=== PATIENT | male | born 1955 | race African-American/Black ===

== ENCOUNTER → 2017-02-21 | Outpatient (CLI) | payer OTHER ==
[~2017-02-21] MED LIST: ALBUTEROL2.5 MG/0.1 INH; ALBUTEROL2.5 MG/0.1 PO; ALBUTEROL2.5 MG/31 INH; CLARITIN10 MG PO; DALIRESP500 MCG PO; DIFLUCAN150 MG PO; DILTIAZEM 24HR240 M2 PO; DOXYCYCLINE 10100 M1 PO; FLONASE 0.05%50 MCG NASAL; FUROSEMIDE 20 M20 M1 PO; LEVAQUIN 500 M500 M2 PO; LOPRESSOR50 PO; MUCINEX600 MG PO; OMEPRAZOLE 20 M20 M1 PO; POTASSIUM PO; PREDNISONE 10 M10 MG PO; PREDNISONE 20 M20 M1 PO; PREDNISONE 20 M20 MG PO; PROAIR HFA8.5 GM INH; SPIRIVA INH; SYMBICORT160 MCG/4. INH; THEO-24100 MG; THEOPHYLLINE600 MG PO; TUSSIONEX PENN473 ML PO
== END ==
LOC: CAT 15:20
DX: Z13.6 Encounter for screening for cardiovascular disorders (principal)

== ENCOUNTER 2017-05-03 15:44 | Inpatient (IN) | payer OTHER ==
[~2017-05-03] VITALS: Ht 167.6 cm; Wt 64.2 kg
--- NOTE | ~2017-05-03 | 2DMMODE ---
[facility] [address] [place] [address] 2 D/M-MODE ECHOCARDIOGRAM Name: HARSHAL ALFONSO MYLES Room #: 455-P ADM IN M.R.#: [id number] Admission: 05/03/17 Attend Phys: Jae Stanley, Discharge: Date of : 51 Date of Service: 05/04/17 1417 Report #: [id number] THIS REPORT FOR: //name// APPROVED REPORT Study performed: 05/04/2017 13:23:52 EXAM: Comprehensive 2D, Doppler, and color-flow Echocardiogram Patient Location: Echo lab Room #: [facility] Other Information Study Quality: Adequate/low parasternal window. Indications Severe CLARKE. Hx: COPD, HTN 2D Dimensions RVDd: 34.31 mm LVEF(%): 61.38 (>50%) IVSd: 9.76 (7-11mm) LVOT Diam: 21.61 (18-24mm) LVDd: 42.08 mm PWd: 9.42 (7-11mm) LVDs: 28.35 (25-40mm) Aortic Root: 34.47 mm Crow's LVEF: 61.38 % Volumes Left Atrial Volume (Systole) Single Plane 4CH: 22.86 mL Single Plane 2CH: 28.43 mL LA ESV Index: 17.00 mL/m2 Mitral Valve E/A Ratio: 0.7 MV Decel. Time: 210.33 ms MV E Max Tree.: 0.80 m/s MV A Tree.: 1.10 m/s MV PHT: 60.99 ms IVRT: 64.59 ms Pulmonary Valve PV Peak Tree.: 1.18 m/s PV Peak Gr.: 5.57 mmHg Pulmonary Vein P Vein S: 0.86 m/s [facility] [place] [place] [address] 2 D/M-MODE ECHOCARDIOGRAM Name: HARSHAL ALFONSO CLOUDCROFT Room #: 455-[facility] IN ..#: [id number] Admission: 05/03/17 Attend Phys: Jae Stanley, Discharge: Date of : 51 Date of Service: 05/04/17 1417 Report #: [id number] P Vein D: 0.65 m/s P Vein S/D Ratio: 1.32 Tricuspid Valve RAP Estimate: 5.00 mmHg Left Ventricle The left ventricle is normal size. There is normal LV segmental wall motion. There is normal left ventricular wall thickness. Left ventricular systolic function is normal. LVEF is 60%. Mild diastolic dysfunction is present (impaired relaxation pattern). Right Ventricle The right ventricle is normal size. The right ventricular systolic function is normal. Atria The left atrium size is normal. The right atrium size is normal. Aortic Valve The aortic valve is normal in structure. No aortic regurgitation is present. There is no aortic valvular stenosis. Mitral Valve The mitral valve is normal in structure. There is no mitral valve regurgitation noted. No evidence of mitral valve stenosis. Tricuspid Valve The tricuspid valve is normal in structure. There is no tricuspid valve regurgitation noted. Pulmonic Valve The pulmonary valve is normal in structure. Trace pulmonic regurgitation. Great Vessels The aortic root is normal in size. Ascending aorta is not well visualized. IVC is normal in size and collapses >50% with inspiration. Pericardium There is no pericardial effusion. <Conclusion> The left ventricle is normal size. [facility] [place] [address] 2 D/M-MODE ECHOCARDIOGRAM Name: HARSHAL ALFONSO Room #: 455-P ADM IN M.R.#: [id number] Admission: 05/03/17 Attend Phys: Jae Stanley, Discharge: Date of : 51 Date of Service: 05/04/171416 Report #: [id number] LVEF is 60%. The aortic valve is normal in structure. The mitral valve is normal in structure. The tricuspid valve is normal in structure. The pulmonary valve is normal in structure. Ascending aorta is not well visualized. IVC is normal in size and collapses >50% with inspiration. <ELECTRONICALLY SIGNED> By: Wyatt Benson MD 05/04/17 1417 16 1417 Wyatt Benson MD /INF
--- NOTE | ~2017-05-03 | H ---
[facility] [place] [address] HISTORY AND PHYSICAL Name: HARSHAL ALFONSO Room #: 455-P ADM IN M.R.#: [id number] Admission: 05/03/17 Attend Phys: Jae Stanley MD Discharge: Date of : 51 Report #: [id number] THIS REPORT FOR: //name// CC: Rao Stanley DICTATED BY: Destiny KAUR ATTENDING PHYSICIAN: Annemarie Lucero M.D. PRIMARY CARE PHYSICIAN: Rao Saba M.D. CHIEF COMPLAINT: Shortness of air. HISTORY OF PRESENT ILLNESS: The patient is a 62-year-old -Spanish male with a history of COPD. He follows with Dr. Lopez with pulmonary outpatient. He normally wears 2 liters of oxygen throughout the night and also on and off throughout the day p.r.n. He says for the last 2 weeks, he has been feeling congested. He has had a cough that is mostly non-productive. He has been having some clear nasal drainage. Overall, he has not been feeling well and has been having some body aches with chills. He has never had a fever, but has been having some sweats, mainly at night. He is having increasing dyspnea on exertion. He used to be able to work out at the gym and walk on a treadmill 3 times a week. He has been unable to do that in the last few weeks because of his dyspnea. Family decided to come in to the ER to be evaluated. His oxygen saturation was 89% on room air. He was using his nebulizers at home as well as Spiriva and Symbicort without much improvement. He does have orthopnea, but this sounds like it is chronic. As far as his can remember, he has always slept on 2-3 pillows at night. He denies any history of congestive heart failure. In the ER, he also received some breathing treatments and was feeling somewhat better. He has been admitted for further evaluation. He also reports some weight loss of about 8 pounds in the last few months, which has been unintentional. PAST MEDICAL HISTORY: COPD. PAST SURGICAL HISTORY: Hernia repair. ALLERGIES: None. HOME MEDICATIONS: Xyzal one tab at bedtime, Spiriva one puff daily, albuterol nebulizer t.i.d., albuterol inhaler p.r.n., Lipitor 40 mg daily, metoprolol 50 mg b.i.d., aspirin 81 mg daily, Lasix 40 mg b.i.d., Symbicort 2 puffs b.i.d., guaifenesin 600 mg daily, Flonase 2 sprays daily and Prilosec 40 mg daily. SOCIAL HISTORY: The patient denies any alcohol or drug use. He is an ex-smoker, having quit 13 years ago. He [place] [address] HISTORY AND PHYSICAL Name: HARSHAL ALFONSO Room #: 455-P [facility] IN M.R.#: [id number] Admission: 05/03/17 Attend Phys: Jae Stanley MD Discharge: Date of : 51 Report #: [id number] normally is very active and works out on a treadmill and lifts weights 3 times a week. FAMILY HISTORY: Significant for heart disease, COPD and hypertension. REVIEW OF SYSTEMS: Twelve-point review of systems was reviewed with the patient, otherwise negative unless stated in the HPI. PHYSICAL EXAMINATION: GENERAL: The patient is an alert male in no acute distress. VITAL SIGNS: Temperature is 37.1, heart rate 102, respirations 20, blood pressure is 129/79 and oxygen 94% on room air. HEENT: PERRLA. Sclerae are nonicteric. Oral mucosa is pink and moist. NECK: Supple. No JVD noted. CARDIAC: Normal S1, S2. No murmurs, rubs or gallops. RESPIRATORY: Breath sounds are clear, bilateral upper lobes. He is diminished in both bases and does have some fine crackles in the left lower lobe. Breathing is nonlabored. ABDOMEN: Flat, nontender and nondistended with hypoactive bowel sounds. VASCULAR: Trace bilateral ankle edema. Pedal pulses are 2+. NEUROLOGIC: The patient is alert and oriented times 3. Speech is clear. He is answering questions appropriately and following commands. No focal neuro deficits noted. LABS AND DIAGNOSTICS: WBC is 6.8, hemoglobin 13.9 and platelets 167,000. Sodium 137, potassium 4.1, BUN 13, creatinine 1.0 and glucose 85. LFTs within normal limits. Troponins negative. ABG showed a pH of 7.43, pCO2 of 52.2 and pO2 of 52.2 with bicarbonate of 34.2, lactate 1.24 and chest x-ray was negative. EKG shows sinus rhythm. ASSESSMENT AND PLAN: 1. Ypndc-yf-slneoxf hypoxic respiratory failure due to chronic obstructive pulmonary disease. His case was discussed with pulmonary from the ER, who wanted the patient to be admitted. We will continue with breathing treatments and steroids. We will check a D-dimer and if that is elevated, check a CT angio of the chest. Consult pulmonary. Wean oxygen as able. We will also check an echocardiogram, though he does not show any signs of acute fluid overload and his BNP is normal. 2. Deep venous thrombosis prophylaxis, place sequential compression devices. [facility] [address] [place] [address] HISTORY AND PHYSICAL Name: KADENHARSHAL Room #: 455-P ADM IN M.R.#: [id number] Admission: 05/03/17 Attend Phys: Jae Stanley MD Discharge: Date of : 51 Report #: [id number] We will continue to follow the patient closely throughout the hospitalization and make changes based on clinical status. <ELECTRONICALLY SIGNED> By: Annemarie Lucero MD 05/04/17 1317 0706 1243 Annemarie Lucero MD /nt
--- NOTE | ~2017-05-03 | EKG ---
[address] [place] [place] [address] ELECTROCARDIOGRAM REPORT Name: HARSHAL ALFONSO MYLES Room #: 455-P ADM IN M.R.#: [id number] Admission: 05/03/17 Attend Phys: Annemarie Lucero Discharge: Date of : 51 Report #: [id number] THIS REPORT FOR: //name// [facility] ED Test Date: 2017-05-03 Test Time: 17:51:44 Pat Name: HARSHAL ALFONSO Department: Room: [facility] Gender: M Podiatric Aide: TANK : 1955 Requested By: Nohemi Zapata Order Number: [id number] MD: Davidson Barakat Measurements Intervals [place] Rate: 99 P: -27 [place]: 134 QRS: -25 QRSD: 70 T: -7 QT: 331 QTc: 425 Interpretive Statements Sinus rhythm Borderline left axis deviation Borderline T abnormalities, inferior leads Compared to ECG 05/16/2014 13:16:52 T-wave abnormality now present Electronically Signed On 05-03-2017 22:06:46 CDT by Davidson Barakat [email or web address] <ELECTRONICALLY SIGNED> By: Davidson Barakat MD 05/03/17 2206 175 175 Davidson Barakat MD /[facility]
[2017-05-03 15:48] VITALS: BP 129/79
[2017-05-03 17:58] LABS: ABG SAMPLE TYPE ARTERIAL; BE(vivo) 8.3 mmol/L (-2 to +3); HCO3 34.2 mmol/L (22.0-26.0); LACTATE 1.24 mmol/L (0.5-2.0); O2(CT) 17.4 mL/dL (15.0-23.0); O2Hb 87.2 % (92.0-98.0); PCO2 52.5 mmHg (35.0-45.0); PO2 52.5 mmHg (80.0-100.0); STICK SITE R.RADIAL; pH 7.432 (7.360-7.450); sO2 87.5 % (92.0-98.0); tCO2 35.8 mmol/L (24.0-30.0)
[2017-05-03 18:49] LABS: RDW 13.6 % (10.5-14.5)
[2017-05-03 18:51] LABS: HEMATOCRIT 41.4 % (42.0-52.0); HEMOGLOBIN 13.9 gm/dL (14.0-18.0); MCH 29.7 pg (26.0-34.0); MCHC 33.6 g/dL (28.0-37.0); MCV 88.4 fL (80.0-100.0); PLATELET COUNT 167 thou/uL (150-400); RBC 4.68 mil/uL (4.50-6.00); WBC 6.8 thou/uL (4.0-11.0)
[2017-05-03 18:52] LABS: MANUAL DIFF YES
[2017-05-03 18:58] LABS: ANION GAP 4 mmol/L (7-16); BUN 13 mg/dL (7-18); CALCIUM 9.2 mg/dL (8.5-10.1); CHLORIDE 99 mmol/L (98-107); CO2 34 mmol/L (21-32); GLUCOSE 85 mg/dL (74-106); POTASSIUM 4.1 mmol/L (3.5-5.1); SODIUM 137 mmol/L (136-145)
[2017-05-03 19:10] LABS: ALBUMIN 3.5 g/dL (3.4-5.0); ALKALINE PHOSPHATASE 101 U/L (46-116); NT-PRO BRAIN NAT PEPTIDE 11 pg/mL (<300); SGOT 26 U/L (15-37); SGPT 28 U/L (30-65); TOTAL BILIRUBIN 0.6 mg/dL (<0.1-1.0); TOTAL PROTEIN 7.7 g/dL (6.4-8.2); TROPONIN-I < 0.04 ng/mL (<0.04-0.07)
[2017-05-03 19:36] LABS: ABSOLUTE NEUTROPHILS 3.9 thou/uL (1.4-8.2); ANISOCYTOSIS 1+; TOTAL CELL COUNT 100
[2017-05-03 20:16] VITALS: BP 120/73
[2017-05-03 20:59] VITALS: BP 139/73
[2017-05-03] MEDS ORDERED: ASPIR 8181 M1 PO (21:20)
[2017-05-03] MEDS ORDERED: XYZAL5 MG PO (21:20)
[2017-05-03] MEDS ORDERED: ATORVASTATIN CA40 MG PO (22:39)
[2017-05-03 23:34] VITALS: BP 129/75
[2017-05-04 04:02] VITALS: BP 151/84
[2017-05-04 07:21] VITALS: BP 129/74
[2017-05-04 07:30] VITALS: BP 127/73
[2017-05-04 11:29] VITALS: BP 120/75
[2017-05-04 15:39] VITALS: BP 132/77
[2017-05-04 19:26] VITALS: BP 134/62
[2017-05-05 04:19] VITALS: BP 126/68
[2017-05-05 09:56] VITALS: BP 120/65
[2017-05-05 12:41] VITALS: BP 121/48
[2017-05-05 19:37] VITALS: BP 128/68
[2017-05-06 04:56] VITALS: BP 115/69
[2017-05-06 07:25] VITALS: BP 117/74
[2017-05-06 10:37] LABS: HEMATOCRIT 39.7 % (42.0-52.0); HEMOGLOBIN 12.8 gm/dL (14.0-18.0); MCH 28.9 pg (26.0-34.0); MCHC 32.2 g/dL (28.0-37.0); MCV 89.9 fL (80.0-100.0); RBC 4.41 mil/uL (4.50-6.00); RDW 13.9 % (10.5-14.5); WBC 15.3 thou/uL (4.0-11.0)
[2017-05-06 10:45] LABS: CALCIUM 9.6 mg/dL (8.5-10.1); CREATININE 1.1 mg/dL (0.7-1.3)
[2017-05-06 11:05] VITALS: BP 122/76
[2017-05-06 15:18] VITALS: BP 120/71
[2017-05-06 20:10] VITALS: BP 140/82
[2017-05-07 04:02] VITALS: BP 111/75
[2017-05-07 07:25] VITALS: BP 113/66
[2017-05-07] MEDS ORDERED: PREDNISONE 20 M20 M1 PO (10:02)
[2017-05-07] MEDS ORDERED: CETIRIZINE HCL5 MG PO (10:02)
[2017-05-07 10:20] VITALS: BP 113/66
[2017-05-07 14:11] VITALS: BP 113/66
== END 2017-05-07 13:00 | disposition home or self-care (01) | DRG 189 ==
LOC: ER 15:44 → 4W 18:41 → EROBS 18:41 → 4W 20:17
PROVIDERS: Internal Medicine; Nurse Practitioner Family
DX: J96.21 Acute and chronic respiratory failure with hypoxia (principal); E43 Unspecified severe protein-calorie malnutrition; J44.1 Chronic obstructive pulmonary disease with (acute) exacerbation; J96.22 Acute and chronic respiratory failure with hypercapnia; I10 Essential (primary) hypertension; E78.5 Hyperlipidemia, unspecified; Z87.891 Personal history of nicotine dependence; Z83.6 Family history of other diseases of the respiratory system; Z79.82 Long term (current) use of aspirin; Z82.49 Family history of ischemic heart disease and other diseases of the circulatory system; Z79.899 Other long term (current) drug therapy; Z68.22 Body mass index [BMI] 22.0-22.9, adult
CPT/HCPCS: 10045

== ENCOUNTER 2017-05-29 16:23 | Inpatient (IN) | payer OTHER ==
[~2017-05-29] VITALS: Ht 172.7 cm; Wt 61.2 kg
--- NOTE | ~2017-05-29 | EKG ---
[address] [place] [address] ELECTROCARDIOGRAM REPORT Name: HARSHAL ALFONSO Room #: 539-P ADM IN M.R.#: [id number] Admission: 05/29/17 Attend Phys: Ryan Rivera MD Discharge: Date of : 51 Report #: [id number] THIS REPORT FOR: //name// [facility] ED Test Date: 2017-05-29 Test Time: 16:47:33 Pat Name: HARSHAL ALFONSO Department: Room: 539 Gender: M Engine Monitor: EMILY : 1955 Requested By: Chuy Cabral Order Number: [id number] MD: Malik Iyer Measurements Intervals [place] Rate: 99 P: 85 [place]: 117 QRS: 83 QRSD: 82 T: 47 QT: 329 QTc: 423 Interpretive Statements Sinus rhythm Borderline right axis deviation Compared to ECG 05/03/2017 17:51:44 No significant change was found Electronically Signed On 05-30-2017 9:25:40 CDT by Malik Iyer [email or web address] <ELECTRONICALLY SIGNED> By: Malik Iyer MD, [facility] 05/30/1725 46 Malik Iyer MD, [facility] /EPI
[2017-05-29 16:23] VITALS: BP 144/73
[~2017-05-29 16:23] MED LIST changes: +ASPIR 8181 M1 PO; +ATORVASTATIN CA40 MG PO; +CETIRIZINE HCL5 MG PO; +XYZAL5 MG PO
[2017-05-29 17:08] LABS: HEMATOCRIT 40.8 % (42.0-52.0); HEMOGLOBIN 13.5 gm/dL (14.0-18.0); MCH 29.1 pg (26.0-34.0); MCHC 33.1 g/dL (28.0-37.0); PLATELET COUNT 146 thou/uL (150-400); RBC 4.63 mil/uL (4.50-6.00); RDW 14.6 % (10.5-14.5); WBC 9.6 thou/uL (4.0-11.0)
[2017-05-29 17:09] LABS: MANUAL DIFF YES
[2017-05-29 17:11] LABS: ABG SAMPLE TYPE ARTERIAL; BE(vivo) 4.5 mmol/L (-2 to +3); HCO3 31.3 mmol/L (22.0-26.0); LACTATE 4.16 mmol/L (0.5-2.0); O2(CT) 18.7 mL/dL (15.0-23.0); O2Hb 95.9 % (92.0-98.0); PCO2 55.7 mmHg (35.0-45.0); PO2 98.8 mmHg (80.0-100.0); STICK SITE R.RADIAL; pH 7.367 (7.360-7.450); sO2 97.2 % (92.0-98.0)
[2017-05-29 17:21] LABS: ANION GAP 7 mmol/L (7-16); BUN 17 mg/dL (7-18); CALCIUM 9.2 mg/dL (8.5-10.1); CHLORIDE 99 mmol/L (98-107); CO2 32 mmol/L (21-32); CREATININE 1.2 mg/dL (0.7-1.3); GLUCOSE 317 mg/dL (74-106); SODIUM 138 mmol/L (136-145)
[2017-05-29 17:32] LABS: ALBUMIN 3.3 g/dL (3.4-5.0); ALKALINE PHOSPHATASE 88 U/L (46-116); DIRECT BILIRUBIN 0.1 mg/dL (<0.1-0.3); NT-PRO BRAIN NAT PEPTIDE 32 pg/mL (<300); SGOT 13 U/L (15-37); SGPT 34 U/L (30-65); TOTAL BILIRUBIN 0.4 mg/dL (<0.1-1.0); TOTAL PROTEIN 6.9 g/dL (6.4-8.2); TROPONIN-I < 0.04 ng/mL (<0.04-0.07)
[2017-05-29 17:34] LABS: ABSOLUTE NEUTROPHILS 8.4 thou/uL (1.4-8.2); TOTAL CELL COUNT 100
[2017-05-29 19:36] VITALS: BP 127/79
[2017-05-30 00:36] VITALS: BP 156/72
[2017-05-30 04:19] VITALS: BP 109/64
[2017-05-30 05:53] LABS: HEMATOCRIT 39.6 % (42.0-52.0); HEMOGLOBIN 13.2 gm/dL (14.0-18.0); MCH 29.2 pg (26.0-34.0); MCHC 33.3 g/dL (28.0-37.0); MCV 87.8 fL (80.0-100.0); RBC 4.51 mil/uL (4.50-6.00); RDW 14.9 % (10.5-14.5); WBC 9.2 thou/uL (4.0-11.0)
[2017-05-30 06:07] LABS: POTASSIUM 4.3 mmol/L (3.5-5.1)
[2017-05-30 08:40] VITALS: BP 120/67
[2017-05-30 15:32] VITALS: BP 112/68
[2017-05-30 19:22] VITALS: BP 138/66
[2017-05-31 04:00] VITALS: BP 118/65
[2017-05-31 07:18] LABS: HEMATOCRIT 38.4 % (42.0-52.0); HEMOGLOBIN 12.8 gm/dL (14.0-18.0); MCH 29.5 pg (26.0-34.0); MCHC 33.3 g/dL (28.0-37.0); MCV 88.6 fL (80.0-100.0); RBC 4.33 mil/uL (4.50-6.00); RDW 14.6 % (10.5-14.5); WBC 7.5 thou/uL (4.0-11.0)
[2017-05-31 07:35] VITALS: BP 138/68
[2017-05-31 08:35] LABS: CALCIUM 9.4 mg/dL (8.5-10.1); CREATININE 1.2 mg/dL (0.7-1.3); POTASSIUM 4.1 mmol/L (3.5-5.1)
[2017-05-31 16:42] VITALS: BP 107/54
[2017-05-31 21:07] VITALS: BP 141/65
[2017-06-01 04:36] VITALS: BP 129/64
[2017-06-01 04:40] LABS: HEMATOCRIT 36.8 % (42.0-52.0); HEMOGLOBIN 12.4 gm/dL (14.0-18.0); MCH 29.6 pg (26.0-34.0); MCHC 33.8 g/dL (28.0-37.0); MCV 87.6 fL (80.0-100.0); RBC 4.2 mil/uL (4.50-6.00); RDW 14.9 % (10.5-14.5); WBC 9.5 thou/uL (4.0-11.0)
[2017-06-01 04:50] LABS: POTASSIUM 4.1 mmol/L (3.5-5.1)
[2017-06-01 16:00] VITALS: BP 111/51
[2017-06-01 20:38] VITALS: BP 146/82
[2017-06-02 04:00] VITALS: BP 112/63
[2017-06-02 06:26] LABS: HEMATOCRIT 37.6 % (42.0-52.0); HEMOGLOBIN 12.6 gm/dL (14.0-18.0); MCH 29.4 pg (26.0-34.0); MCHC 33.5 g/dL (28.0-37.0); MCV 87.7 fL (80.0-100.0); PLATELET COUNT 161 thou/uL (150-400); RBC 4.29 mil/uL (4.50-6.00); RDW 14.5 % (10.5-14.5)
[2017-06-02 06:35] LABS: CALCIUM 9.2 mg/dL (8.5-10.1); CREATININE 1.1 mg/dL (0.7-1.3); POTASSIUM 4.4 mmol/L (3.5-5.1)
[2017-06-02 06:50] LABS: MANUAL DIFF YES
[2017-06-02 08:05] LABS: ABSOLUTE NEUTROPHILS 7.7 thou/uL (1.4-8.2); PLATELET ESTIMATE NORMAL; TOTAL CELL COUNT 100
[2017-06-02 08:59] VITALS: BP 124/75
[2017-06-02 16:00] VITALS: BP 123/62
[2017-06-02 19:14] VITALS: BP 125/65
[2017-06-03] VITALS (8 sets, daily range): BP systolic 111–115; BP diastolic 62
[2017-06-03] MEDS ORDERED: MEDROL DOSPAK21 TA1 PO (09:18)
[2017-06-03] MEDS ORDERED: AZITHROMYCIN 2250 MG PO (09:18)
== END 2017-06-03 14:20 | disposition home health service (06) | DRG 177 ==
LOC: ER 16:23 → 5S 17:59 → EROBS 17:59 → 5S 18:44
PROVIDERS: Family Medicine; Internal Medicine Pulmonary Disease; Nurse Practitioner
DX: J69.0 Pneumonitis due to inhalation of food and vomit (principal); J96.21 Acute and chronic respiratory failure with hypoxia; J44.0 Chronic obstructive pulmonary disease with (acute) lower respiratory infection; K56.7 Ileus, unspecified; J44.1 Chronic obstructive pulmonary disease with (acute) exacerbation; R00.0 Tachycardia, unspecified; J20.9 Acute bronchitis, unspecified; E11.65 Type 2 diabetes mellitus with hyperglycemia; Z87.891 Personal history of nicotine dependence; Z99.81 Dependence on supplemental oxygen; Z79.82 Long term (current) use of aspirin; Z82.49 Family history of ischemic heart disease and other diseases of the circulatory system; Z79.899 Other long term (current) drug therapy
CPT/HCPCS: 10086

== ENCOUNTER → 2017-07-14 | Outpatient (CLI) | payer OTHER ==
[~2017-07-14] MED LIST changes: +AZITHROMYCIN 2250 MG PO; +MEDROL DOSPAK21 TA1 PO
== END ==
LOC: ULTRA 08:42
DX: E04.2 Nontoxic multinodular goiter (principal)

== ENCOUNTER 2018-12-13 14:37 | Inpatient (IN) | payer OTHER ==
[~2018-12-13] VITALS: Ht 170.2 cm; Wt 62.1 kg
[~2018-12-13 14:37] MED LIST changes: +ALL DAY ALLERGY10 M3 PO; +LEVAQUIN 500 M500 MG PO; +VENTOLIN HFA 1818 GM INH
[2018-12-13 14:39] VITALS: BP 119/79
[2018-12-13 15:34] LABS: ABSOLUTE NEUTROPHILS 5.3 thou/uL (1.4-8.2); BASOPHILS 0.7 % (0.0-2.0); EOSINOPHILS 4.6 % (0.0-3.0); HEMATOCRIT 38.8 % (42.0-52.0); HEMOGLOBIN 12.9 gm/dL (14.0-18.0); LYMPHOCYTES 19.4 % (24.0-44.0); MCH 28.4 pg (26.0-34.0); MCHC 33.2 g/dL (28.0-37.0); MCV 85.5 fL (80.0-100.0); MONOCYTES 9.5 % (1.0-8.0); PLATELET COUNT 236 thou/uL (150-400); POLYS 65.8 % (36.0-66.0); RBC 4.54 mil/uL (4.50-6.00); RDW 13.6 % (10.5-14.5)
[2018-12-13 15:39] LABS: ANION GAP 4 mmol/L (7-16); BUN 11 mg/dL (7-18); CALCIUM 9.6 mg/dL (8.5-10.1); CHLORIDE 101 mmol/L (98-107); CO2 35 mmol/L (21-32); CREATININE 1.3 mg/dL (0.7-1.3); GLUCOSE 114 mg/dL (74-106); POTASSIUM 4.2 mmol/L (3.5-5.1); SODIUM 140 mmol/L (136-145)
[2018-12-13 15:47] LABS: SGOT 29 U/L (15-37); SGPT 33 U/L (30-65); TOTAL BILIRUBIN 0.4 mg/dL (<0.1-1.0); TROPONIN-I <0.06 ng/mL (<0.06)
[2018-12-13] MEDS ORDERED: FLONASE 0.05%50 MCG NASAL (15:52)
[2018-12-13] MEDS ORDERED: ATORVASTATIN CA40 MG PO (15:53)
--- NOTE | 2018-12-13 16:35 | EKG ---
[address] [place] [address] ELECTROCARDIOGRAM REPORT Name: KADENHARSHAL BUENO [id number] Admission: 12/13/18 Attend Phys: Discharge: Date of : 51 Report #: [id number] THIS REPORT FOR: //name// [facility] ED Test Date: 2018-12-13 Test Time: 14:54:14 Pat Name: HARSHAL ALFONSO Department: Room: Gender: Machine Plug Shaper: ZA : 1955 Requested By: Samia Leon Order Number: [id number] MD: Davidson Barakat Measurements Intervals [place] Rate: 99 P: 66 [place]: 116 QRS: 84 QRSD: 75 T: 33 QT: 344 QTc: 442 Interpretive Statements Sinus rhythm Borderline right axis deviation Borderline low voltage, extremity leads Compared to ECG 05/29/2017 16:47:33 No significant changes Electronically Signed On 12-13-2018 16:34:59 SERVICE AND REPAIR SUPERVISOR by Davidson Barakat [email or web address] <ELECTRONICALLY SIGNED> By: Davidson Barakat MD 12/13/18 1634 1454 145 Davidson Barakat MD /FERN
[2018-12-13 18:11] VITALS: BP 157/74
[2018-12-13 18:18] VITALS: BP 129/80
[2018-12-13 20:02] VITALS: BP 136/65
--- NOTE | 2018-12-14 04:17 | NUR ---
PT ORIENTATED TO ROOM AND CALL LIGHT PT USED CALL LIGHT EFFECTIVELY PT PROVIDED INFO FOR HEALTH HX.
[2018-12-14 04:42] VITALS: BP 125/72
--- NOTE | 2018-12-14 15:29 | NUR ---
ASSUMED PT CARE AT 0645. PT IS A/OX4. PT VERY SOB WITH EXERSION. WILL CONTINUE TO MONITOR PT
[2018-12-14 15:59] VITALS: BP 123/59
--- NOTE | 2018-12-14 16:11 | NUR ---
PT ADMITTED RELATED TO COPD EXACERBATION. CM REVEIWED CHART AND SPOKE WITH CARE TEAM. CM MET WITH PT AT BEDSIDE THIS DAY. PT IS A&O X4. CM ROLE INTRODUCED. PT INDICATED HE LIVES IN A HOUSE WITH HIS SPOUSE WITH 1 STEPS TO ENTER AND NO STEPS INSIDE. PT INDICATED HE HAD BEEN INDEPENDENT WITH GAIT AND ADLS DISABILITY REPRESENTATIVE. PT INDICATED HE HAS HOME O2 AND A CPAP THROUGH [facility]. PT INDICATED NO HH HX. CM TO FOLLOW INDICATED WITH DC PLANNING.
[2018-12-14 19:02] VITALS: BP 131/53
[2018-12-15 03:44] VITALS: BP 122/68
--- NOTE | 2018-12-15 07:12 | NUR ---
PROGRESS PT A/O X4, UP AD JOLIE. DENIES PAIN OR ANY NEEDS, IV SOLUMEDROL GIVEN ORDERED. PT SLEPT MOST OF NIGHT.
[2018-12-15 07:55] VITALS: BP 108/66
[2018-12-15 13:41] VITALS: BP 135/57
--- NOTE | 2018-12-15 14:12 | NUR ---
CARE TEAM INDICATED THEY ANTICIPATE THAT PT WILL DISCHARGE HOME TUESDAY. PT HAS ALL RECOMMENDED DME.
--- NOTE | 2018-12-15 15:18 | NUR ---
PT STABLE THROUGHOUT SHIFT. PT TRANSFERRED TO SR SUITES. REPORT CALLED.
[2018-12-15 16:13] VITALS: BP 116/68
--- NOTE | 2018-12-15 16:14 | NUR ---
REC PT AROUND 1515, VS TAKEN, INTRO'D TO ROOM/CALL LIGHT, 02 AT 3L, CHRONIC USE AT HOME, ENCOURAGED PT TO USE CALL LIGHT FOR ANY NEEDS
[2018-12-15 19:34] VITALS: BP 121/66
--- NOTE | 2018-12-16 04:41 | NUR ---
ASSUMED CARE OF PATIENT AT 1900. VSS. ASSESSMENT COMPLETED AT 2214 AND IS DOCUMENTED. LEFT AC PIV PATENT AND SALINE LOCKED. CONTINUES ON 3L O2 VIA NC. PRN NORCO GIVEN FOR C/O RECTUM PAIN WITH DESIRED EFFECT ACHIEVED. PT CURRENTLY SLEEPING SOUNDLY IN BED IN NO ACUTE DISTRESS. CALL LIGHT WITHIN REACH. BED LOCKED AND IN LOWEST POSITION. WCTM.
[2018-12-16 09:30] VITALS: BP 117/63
--- NOTE | 2018-12-16 09:30 | NUR ---
ASSUMED PT CARE AT 0700. ASSESSMENT COMPLETE AND IS CHARTED AT 0930. VITAL SIGNS STABLE. PT ON 3L O2 AND IS ON THIS AT HOME. PT ON SIDE OF BED FINISHING BREAKFAST. DOES NOT APPEAR IN ACUTE DISTRESS. LUNGS ARE DIMINISHED WITH CRACKLES IN THE BASES. PT REPORTS PAIN TO HIS RECTUM RATED 8/10. HYDROCODONE GIVEN ORDERED. PT IS ALERT/ORIENTED X4. NO NEW CONCERNS OR COMPLAINTS AT THIS TIME. WILL CONTINUE WITH CURRENT CARE.
--- NOTE | 2018-12-16 14:07 | NUR ---
PT DOING WELL THIS SHIFT. HAD SHOWER EARLIER TODAY AND SOME SHORTNESS OF BREATH WAS NOTED. PT STATES THAT IS NORMAL WITH ACTIVITY AT HOME. PT IN NO ACUTE DISTRESS NOW. PT UP AND AROUND IN ROOM WITH NO PROBLEMS. WILL CONTINUE TO MONITOR.
[2018-12-16 19:21] VITALS: BP 147/74
--- NOTE | 2018-12-17 05:36 | NUR ---
ASSUMED CARE OF PATIENT AT 1900. VSS. ASSESSMENT COMPLETED AT 2130 AND IS DOCUMENTED. PRN NORCO GIVEN FOR C/O BUTTOCK PAIN WITH DESIRED EFFECT ACHIEVED. LUNG SOUNDS VERY DIMINISHED ON EXPIRATION, SOME CRACKLES NOTED TO BASES. O2 @ 3L VIA NC WHICH IS HOME BASELINE. NO SOA OR DISTRESS NOTED OR REPORTED LAST NIGHT. LEFT FA PIV PATENT AND SALINE LOCKED. PT CURRENTLY SLEEPING SOUNDLY IN BED IN NO ACUTE DISTRESS. CALL LIGHT WITHIN REACH. BED LOCKED AND IN LOWEST POSITION. WCTM.
--- NOTE | 2018-12-17 06:33 | NUR ---
THIS NURSE AGREES WITH THE ASSESSMENT AND NOTES FROM THE TOP LIFT AND AUTOMATIC WINDOW REPAIRER ON THIS PATIENT.
[2018-12-17 08:23] VITALS: BP 114/61
--- NOTE | 2018-12-17 12:19 | NUR ---
ASSUMED CARE OF PATIENT THIS MORNING. PATIENT IS ALERT AND ORIENTED X4. HE IS UP AD JOLIE. PATIENT WAS ASSESSED THIS MORNING BREATH SOUNDS WERE DIMINISHED WITH SOME WHEEZING HEARD UPON ASCULTATION. HYPOACTIVE BOWEL SOUNDS, LAST BOWEL MOVEMENT WAS YESTERDAY. PATIENT IS ON METHYLPREDNISOLONE AND GETS BLOOD SUGAR CHECKED AC/HS. HE RECEIVES IV ANTIBIOTIC LEVOFLOXACIN. HE WEARS 3L OF OXYGEN. PATIENT WILL POSSIBLY BE DISCHARGED LATER THIS AFTERNOON. HE IS CURRENTLY SITTING IN CHAIR WITH CALL LIGHT WITHIN REACH. PATIENT CALLS OUT APPROPRIATELY.
[2018-12-17 18:25] VITALS: BP 137/62
[2018-12-18 07:38] VITALS: BP 131/80
--- NOTE | 2018-12-18 14:03 | NUR ---
ASSUMED CARE OF PATIENT THIS MORNING. PATIENT IS UP AD JOLIE. PATIENT DOES NOT COMPLAIN OF ANY PAIN. PATIENT WAS ASSESSED BREATH SOUNDS WERE DIMINISHED W/CRACKLES. PATIENT RECEIVES IV ANTIOBIOTICS. PATIENT WANTS TO STAY ANOTHER DAY SO HE CAN GET A LITTLE STRONGER TO DISCHARGE TOMORROW, OK WITH PHYSICIAN. HE IS ON 3L OF OXYGEN. LAST BOWEL MOVEMENT WAS YESTERDAY. PATIENT IS CURRENTLY LAYING IN BED WITH HIS CALL LIGHT WITHIN REACH. PATIENT CALLS OUT APPROPRIATELY FOR ASSISTANCE.
--- NOTE | 2018-12-18 14:56 | NUR ---
CARE TEAM INDICATED THAT THEY ANTICIPATE THAT PT WILL BE MEDICALLY STABLE TO DISCHARGE HOME TOMORROW Tuesday12/19/18. IT IS ANTICIPATED THAT PT HAS ALL RECOMMENDED DME. CM TO FOLLOW INDICATED SHOULD ANY NEEDS ARISE.
[2018-12-18 19:27] VITALS: BP 131/69
--- NOTE | 2018-12-19 05:51 | NUR ---
PATIENT ALERT AND ORIENTED X4. C/O PAIN X1, MED GIVEN WITH GOOD RESULTS. LUNGS COARSE AND STATES IS CONGESTED. FLONASE WAS ORDERED AND USED. ACCUCHECK WAS 172, 3UNITS LISPRO INSULIN WAS GIVEN. UP IN ROOM BY SELF. SLEPT VERY LITTLE THIS SHIFT.
[2018-12-19 08:00] VITALS: BP 128/62
[2018-12-19] MEDS ORDERED: LEVAQUIN 500 M500 M2 PO (08:40)
[2018-12-19] MEDS ORDERED: PREDNISONE 20 M20 MG PO (08:41)
[2018-12-19 09:51] VITALS: BP 131/69
--- NOTE | 2018-12-19 14:46 | NUR ---
DISCHARGE NOTE: SW reviewed chart and spoke with nursing and attending physician. Pt is medically stable for discharge home today. Pt's family to provide transportation home. No SW discharge needs identified at this time, but is available to assist should needs arise.
[2018-12-20 04:12] LABS: ADENOVIRUS Negative (Negative); INFLUENZA A Negative (Negative); INFLUENZA B Negative (Negative); METAPNEUMOVIRUS Negative (Negative); PARAINFLUENZA 1 Negative (Negative); PARAINFLUENZA 2 Negative (Negative); PARAINFLUENZA 3 Negative (Negative); RHINOVIRUS Negative (Negative); RSV A Negative (Negative); RSV B Negative (Negative)
== END 2018-12-19 15:17 | disposition home or self-care (01) | DRG 202 ==
LOC: ER 14:37 → 4W 17:09 → SICU 17:09 → EROBS 17:09 → 4W 19:23 → SICU 12-15 15:43
PROVIDERS: Student in an Organized Health Care Education/Training Program; ADMIT Hospitalist
DX: J20.9 Acute bronchitis, unspecified (principal); J44.0 Chronic obstructive pulmonary disease with (acute) lower respiratory infection; J44.1 Chronic obstructive pulmonary disease with (acute) exacerbation; Z79.899 Other long term (current) drug therapy; Z79.51 Long term (current) use of inhaled steroids; Z87.891 Personal history of nicotine dependence
CPT/HCPCS: 10045; 15002

== ENCOUNTER 2019-02-06 14:25 | Emergency (ER) | payer OTHER ==
[~2019-02-06] VITALS: Ht 165.1 cm; Wt 61.2 kg
[~2019-02-06 14:25] MED LIST changes: -COLACE100 MG PO; -NORCO 5-325 TA1 EACH PO
[2019-02-06 16:17] LABS: ABSOLUTE NEUTROPHILS 7.5 thou/uL (1.4-8.2); BASOPHILS 0.9 % (0.0-2.0); EOSINOPHILS 5.2 % (0.0-3.0); HEMATOCRIT 33.7 % (42.0-52.0); HEMOGLOBIN 11.1 gm/dL (14.0-18.0); LYMPHOCYTES 12.5 % (24.0-44.0); MCH 27.4 pg (26.0-34.0); MCV 83.2 fL (80.0-100.0); MONOCYTES 8.9 % (1.0-8.0); PLATELET COUNT 359 thou/uL (150-400); POLYS 72.5 % (36.0-66.0); RBC 4.05 mil/uL (4.50-6.00); WBC 10.4 thou/uL (4.0-11.0)
[2019-02-06 16:22] LABS: ANION GAP 7 mmol/L (7-16); BUN 14 mg/dL (7-18); CALCIUM 9.2 mg/dL (8.5-10.1); CHLORIDE 95 mmol/L (98-107); CO2 37 mmol/L (21-32); CREATININE 1.5 mg/dL (0.7-1.3); GLUCOSE 155 mg/dL (74-106); POTASSIUM 3.3 mmol/L (3.5-5.1); SODIUM 139 mmol/L (136-145)
[2019-02-06 16:31] LABS: SGOT 32 U/L (15-37); SGPT 27 U/L (30-65); TOTAL BILIRUBIN 0.5 mg/dL (<0.1-1.0); TOTAL PROTEIN 7.1 g/dL (6.4-8.2); TROPONIN-I <0.06 ng/mL (<0.06)
[2019-02-06 16:38] LABS: BE(vivo) 9.3 mmol/L (-2 to +3); HCO3 35.3 mmol/L (22.0-26.0); PCO2 55.9 mmHg (35.0-45.0); PO2 129.5 mmHg (80.0-100.0); pH 7.418 (7.360-7.450); sO2 98.6 % (92.0-98.0)
[2019-02-06] MEDS ORDERED: COLACE100 MG PO (18:16)
[2019-02-06] MEDS ORDERED: NORCO 5-325 TA1 EACH PO (18:16)
[2019-02-06 19:33] VITALS: BP 101/67
--- NOTE | 2019-02-07 17:01 | EKG ---
[address] [place] [address] ELECTROCARDIOGRAM REPORT Name: HARSHAL ALFONSO [id number] ������������������ Admission: 02/06/19 ������������������ Attend Phys: Discharge: 02/06/19 ������������������ Date of : 51 Report #: [id number] ����������������������������������������������������������������� [id number] THIS REPORT FOR: //name// [facility] ED Test Date: 2019-02-06 Test Time: 16:20:37 Pat Name: HARSHAL ALFONSO Department: Room: Gender: M Remelter: [facility] : 1955 Requested By: Vinh Fountain Order Number: [id number] MD: Malik Iyer Measurements Intervals [place] Rate: 96 P: 83 [place]: 127 QRS: 86 QRSD: 81 T: 69 QT: 363 QTc: 459 Interpretive Statements Sinus rhythm Borderline right axis deviation Nonspecific T wave abnormality Baseline wander in lead(s) II,III,aVF Compared to ECG 12/13/2018 14:54:14 No significant change was found Electronically Signed On 02-07-2019 17:01:06 CDT by Malik Iyer [email or web address] ��������������������������������������������� <ELECTRONICALLY SIGNED> ���������������������������������������� By: Malik Iyer MD, [facility] ��������������������������������������������� 02/07/19 5870 1620 1620 Malik Iyer MD, [facility] /EPI
== END 2019-02-06 19:34 | disposition home or self-care (01) ==
LOC: ER 14:25
PROVIDERS: Emergency Medicine
DX: K62.89 Other specified diseases of anus and rectum (principal); J44.9 Chronic obstructive pulmonary disease, unspecified; Z87.891 Personal history of nicotine dependence

== ENCOUNTER → 2019-02-06 | Outpatient (CLI) | payer OTHER ==
[~2019-02-06] MED LIST changes: +COLACE100 MG PO; +NORCO 5-325 TA1 EACH PO
== END ==
LOC: CAT 12:50
DX: K76.0 Fatty (change of) liver, not elsewhere classified (principal); R19.09 Other intra-abdominal and pelvic swelling, mass and lump; N28.9 Disorder of kidney and ureter, unspecified